=== PATIENT | male | born 1955 | race Caucasian/White ===

== ENCOUNTER → 2021-03-28 | Outpatient (CLI) | payer BC, MEDICARE ==
[~2021-03-28] MED LIST: AMIODARONE HCL200 MG PO; DOXYCYCLINE HY100 M2 PO; ELIQUIS 5 MG TAB5 MG PO; LASIX40 MG PO; LISINOPRIL10 MG PO; METOPROLOL SUCC25 MG PO; NITROGLYCERIN0.4 MG SL
== END ==
LOC: NM 09:00
DX: I20.9 Angina pectoris, unspecified (principal)
CPT/HCPCS: 78452; A9502; J2785

== ENCOUNTER → 2021-04-30 | Outpatient (CLI) | payer BC, MEDICARE | LOC: EXRD 10:11 | DX: R94.39 Abnormal result of other cardiovascular function study (principal); I20.9 Angina pectoris, unspecified; I42.9 Cardiomyopathy, unspecified; I48.91 Unspecified atrial fibrillation | CPT/HCPCS: 71046 ==

== ENCOUNTER → 2021-05-02 | Outpatient (CLI) | payer BC, MEDICARE | LOC: CATH 07:20 | DX: R94.39 Abnormal result of other cardiovascular function study (principal); I20.9 Angina pectoris, unspecified; I42.9 Cardiomyopathy, unspecified; I48.91 Unspecified atrial fibrillation | CPT/HCPCS: 92960; 93005; 99152; 99153; C1769; C1894; J1644; J2250; J2270; J3010; J7030; Q9967 ==

== ENCOUNTER → 2021-08-01 | Outpatient (CLI) | payer BC, MEDICARE | LOC: HEART 5 09:33 | DX: R06.02 Shortness of breath (principal); Z79.899 Other long term (current) drug therapy; R94.2 Abnormal results of pulmonary function studies; F17.210 Nicotine dependence, cigarettes, uncomplicated | CPT/HCPCS: 94060; 94729 ==

== ENCOUNTER → 2022-07-11 | Outpatient (CLI) | payer BC, MEDICARE | LOC: HEART 5 09:00 | DX: I50.22 Chronic systolic (congestive) heart failure (principal); R06.02 Shortness of breath; I08.1 Rheumatic disorders of both mitral and tricuspid valves | CPT/HCPCS: 93306 ==

== ENCOUNTER → 2022-07-16 | Outpatient (CLI) | payer BC, MEDICARE | LOC: HEART 5 09:20 | DX: R06.02 Shortness of breath (principal); Z79.899 Other long term (current) drug therapy | CPT/HCPCS: 94060; 94729 ==